=== PATIENT | female | born 1950 | race Caucasian/White ===

== ENCOUNTER → 2019-06-29 | Outpatient (CLI) | payer OTHER ==
[~2019-06-29] MED LIST: ATORVASTATIN CA20 MG PO; BUPROPION HCL100 MG PO; BUPROPION XL150 MG PO; DICLOFENAC SODI75 MG PO; PRILOSEC OTC20 MG PO; ZESTRIL20 MG PO
--- NOTE | 2019-06-29 12:14 | P ---
[facility] [place] [address] PROCEDURE REPORT Name: DASIA AVINA Room #: REG [facility] Ivette.#: [id number] Admission: 06/29/19 Attend Phys: Murali Go MD Discharge: Date of : 48 Report #: [id number] THIS REPORT FOR: cc: Vicky Gonzalez MD,Vicky Go,Murali Sharma MD ~ THIS REPORT FOR: //name// CC: Murali Gonzalez DATE OF SERVICE: 06/29/2019 BRIEF HISTORY: The patient is a 68-year-old woman with recent rectal bleeding. She also has longstanding reflux symptoms that are not well controlled on therapy. PREOPERATIVE DIAGNOSIS: Poorly controlled reflux disease, on PPI therapy. POSTOPERATIVE DIAGNOSES: 1. Grade C esophagitis. 2. Small hiatus hernia. 3. Diffuse gastritis. 4. Multiple gastric polyps. MEDICATIONS: Deep sedation with propofol per anesthesia. SPECIMENS: 1. Biopsies of gastritis, rule out Helicobacter pylori. 2. Biopsies of gastric polyps. 3. Biopsy of distal esophagus, rule out Peguero. ESTIMATED BLOOD LOSS: 3 mL. PROCEDURE: EGD with biopsy. FINDINGS: Prior to propofol sedation, the procedure of upper endoscopy was discussed with the patient as well as potential risks and its complications. She indicates she understands and desires to proceed. DESCRIPTION OF PROCEDURE: With the patient in left lateral decubitus position, Olympus video endoscope was inserted in the cervical esophagus under direct vision without difficulty. Examination of this organ through its entire length revealed normal esophageal mucosa down the squamocolumnar junction. At the squamocolumnar junction, there was evidence of erosions involving the tops of [facility] [address] [place] [address] PROCEDURE REPORT Name: KAILYNDASIA AMBROSE Room #: REG [facility].#: [id number] Admission: 06/29/19 Attend Phys: Murali Go MD Discharge: Date of : 48 Report #: [id number] the gastric folds. There was also question of Peguero's mucosa, but I believe that represent esophagitis and multiple biopsies are obtained. It is noted the area was examined with white light as well as narrow banded imaging. No other abnormalities were seen. Scope was advanced into a small hiatus hernia. There was no more than 2 cm. The mucosa and hernia was unremarkable. The scope was advanced into the stomach, was examined on end view as well as retroflexed views. Examination of the gastric mucosa revealed diffuse erythema, no ulcers or erosions were seen. Multiple biopsies were obtained. Stomach was examined on end view as well as retroflexed views. There were noted to be multiple polyps in the body of the stomach. None were larger than a centimeter. These are likely related to her nursing home use of PPIs. Several of the larger ones were biopsied. They all had a benign appearance. No lesions were seen in the cardia of the stomach. The pylorus, duodenal bulb and post-coronary sweep were inspected and noted to be unremarkable. At that point, the scope was slowly withdrawn and careful circumferential views confirmed the above findings. The patient tolerated the procedure well. CONDITION OF THE PATIENT UPON DISCHARGE: Following procedure, the patient drowsy, aroused, conversant and will be discharged home when fully ambulatory. INSTRUCTIONS TO THE PATIENT AND FAMILY AT THE TIME OF DISCHARGE: I suspect she has esophagitis, we will follow up on biopsies. We will have her change her omeprazole to pantoprazole 40 mg daily. Also, have her return for followup in the office for long-term plans regarding treatment. We will follow up on biopsies obtained today. At this time, we will proceed with colonoscopy. <ELECTRONICALLY SIGNED> By: Murali Go MD 06/29/19 1214 [id number] Murali Go MD /nt
--- NOTE | 2019-06-30 12:07 | PATH ---
[facility] [place] [address] PATHOLOGY RPT PROCEDURE Name: JOSEPHINE AVINA Room #: REG [facility]..#: [id number] Admission: 06/29/19 Date of : 48 Discharge: Report #: [id number] Path Case #: [id number] [facility] Accession Number: [id number] . 01 Material submitted: . PART A: stomach - BX OF GASTRITIS PART B: stomach - BX OF GASTRIC POLYPS PART C: esophagus - BX OF DISTAL ESOPHAGUS. Modifiers: distal PART D: colon - POLYP AT PROXIMAL TRANSVERSE COLON. Modifiers: proximal, transverse . 01 Clinical history: . Pre-op diagnosis: Reflux Post-op diagnosis: Esophagitis, hiatus hernia, gastritis, gastric polyps, colon polyp, hemorrhoids . 02 Diagnosis: A. Stomach, biopsy: - Chronic superficial gastritis, mild. - No evidence of Helicobacter pylori on immunoperoxidase stain. . B. "Gastric polyps", biopsy: - Fundic gland polyps, 3. . C. Esophagus, distal, biopsy: - Squamocolumnar epithelium with moderate chronic inflammation. - Intestinal metaplasia present focally, findings consistent with Peguero's esophagus. - No evidence of dysplasia. . D. Colon, proximal transverse, biopsy: - Hyperplastic colonic mucosa, several fragments. (SKM:pit 06/30/2019) [facility] 06/30/2019 0937 Local . 02 Electronically signed: . Yeyo Gaxiola MD, Pathologist NPI- [id number] . 01 Gross description: . A. The specimen is received in formalin, labeled "Josephine Avina, biopsy of gastritis to R/O H. pylori". Received are three segments of pale rosado soft tissue ranging in size from 0.6 to 0.7 cm in maximum dimensions. The specimen is submitted entirely in cassette A1. . B. The specimen is received in formalin, labeled "Josephine Avina, biopsy of gastric polyps". Received are three segments [place] [address] PATHOLOGY RPT PROCEDURE Name: JOSEPHINE VAINA [id number] Ad[facility]: 06/29/19 Date of : 48 Discharge: Report #: [id number] Path Case #: [id number] ranging in size from 0.4 to 0.5 cm in maximum dimensions. The specimen is submitted entirely in cassette B1. . C. The specimen is received in formalin, labeled "Josephine Avina, biopsy distal esophagus to R/O Peguero's". Received are five segments of pale rosado soft tissue ranging in size from 0.2 to 0.6 cm in maximum dimensions. The specimen is submitted entirely in cassette C1. . D. The specimen is received in formalin, labeled "Josephine Avina, polyp at proximal transverse colon". Received is a segment of pale rosado soft tissue measuring 0.8 cm in maximum dimensions. The specimen is submitted entirely in cassette D1. (CAA; 06/29/2019) QAC/QAC 06/29/2019 1731 Local . 02 Pathologist provided ICD-10: K29.30, K31.7, K20.9 . 02 CPT . 732292, 568649, 746506, 856306, [id number] Specimen Comment: A courtesy copy of this report has been sent to [phone], [phone] Specimen Comment: [phone] Specimen Comment: Report sent to DR GLORIA / DR VELÁSQUEZ Performed at: [address] [facility], [place] [id number] MD Parth Lund MD Phone: [phone] Performed at: [address] [id number] MD Olesya Pham MD Phone: [phone]
--- NOTE | 2019-07-02 11:21 | P ---
[facility] [place] [address] PROCEDURE REPORT Name: DASIA AVINA Room #: REG [facility] Ivette.#: [id number] Admission: 06/29/19 Attend Phys: Murali Go MD Discharge: Date of : 48 Report #: [id number] THIS REPORT FOR: cc: Vicky Gonzalez MD, Sharon R. MD Thesing, John A. MD ~ THIS REPORT FOR: //name// CC: Murali Gonzalez MD OUTPATIENT COLONOSCOPY REPORT BRIEF HISTORY: The patient is a 68-year-old woman with recent rectal bleeding. PREOPERATIVE DIAGNOSIS: Rectal bleeding. POSTOPERATIVE DIAGNOSES: 1. Diminutive polyp, proximal transverse colon. 2. Small internal hemorrhoids. MEDICATIONS: Deep sedation with propofol per anesthesia. SPECIMEN: Polyp from proximal transverse colon. ESTIMATED BLOOD LOSS: 3 mL. PROCEDURE: Colonoscopy to cecum and terminal ileum with biopsy. FINDINGS: Prior to propofol sedation, procedure of colonoscopy discussed with the patient as well as potential risks and its complications. She indicates she understands and desires to proceed. DESCRIPTION OF PROCEDURE: With the patient in left lateral decubitus position, digital examination was completed, which revealed no abnormalities. Subsequently, the Olympus video colonoscope was introduced into the rectum, advanced under direct vision to the cecum, done with minimal difficulty. The cecum was identified by the ileocecal valve and the appendiceal orifice. I was able to visualize the distal segment of terminal ileum, which was inspected and noted to be unremarkable. At that point, the scope was slowly withdrawn and careful circumferential views were obtained including retroflexing the scope in the ascending colon. Upon slow withdrawal of the scope, the prep was good. The mucosa was within normal limits, normal vascular pattern, normal light reflex. No inflammatory neoplastic changes were seen until the proximal transverse colon was reached and at that point, a diminutive polyp was identified and removed with biopsy forceps. The scope was further withdrawn and no additional [facility] [address] [place] [address] PROCEDURE REPORT Name: DASIA AVINA Room #: REG [facility].#: [id number] Admission: 06/29/19 Attend Phys: Murali Go MD Discharge: Date of : 48 Report #: [id number] neoplastic lesions were seen on the remainder of the exam. In addition, no other abnormalities were noted until the rectum was reached, at which point, small internal hemorrhoids were seen. This is likely the site of her recent rectal bleeding. There is no evidence of bleeding at this point in time. The scope was withdrawn. The patient tolerated the procedure well. CONDITION OF THE PATIENT UPON DISCHARGE: Following procedure, the patient drowsy, aroused, conversant and will be discharged home when fully ambulatory INSTRUCTIONS TO THE PATIENT AND FAMILY AT THE TIME OF DISCHARGE: We will follow up on the pathology. If this polyp is an adenoma, she should return in 5 years for screening colonoscopy. If it is hyperplastic, then 10 years would be indicated. Withdrawal time from cecum was 14 minutes 25 seconds. Last colonoscopy was done probably about 10 years ago per the patient report. <ELECTRONICALLY SIGNED> By: Murali Go MD 07/02/19 1121 [id number] [id number] Murali Go MD /nt
== END | disposition home or self-care (01) ==
LOC: GI 06:37
DX: K62.5 Hemorrhage of anus and rectum (principal); K63.5 Polyp of colon; K64.8 Other hemorrhoids; K29.30 Chronic superficial gastritis without bleeding; K21.0 Gastro-esophageal reflux disease with esophagitis; K31.7 Polyp of stomach and duodenum; K22.70 Barrett's esophagus without dysplasia; K44.9 Diaphragmatic hernia without obstruction or gangrene; I10 Essential (primary) hypertension; F32.9 Major depressive disorder, single episode, unspecified; Z98.890 Other specified postprocedural states; Z79.899 Other long term (current) drug therapy; Z85.3 Personal history of malignant neoplasm of breast; Z88.0 Allergy status to penicillin; Z88.2 Allergy status to sulfonamides